=== PATIENT | male | born 1930 | race Caucasian/White ===

== ENCOUNTER → 2016-09-25 | Outpatient (CLI) | payer OTHER, MEDICARE ==
[~2016-09-25] MED LIST: ACETAMINOPHEN325 M1 PO; ADULT LOW DOSE81 MG PO; ALEVE220 M1 PO; AMRIX15 MG PO; APAP650; DOXYCYCLINE 10100 MG PO; ENABLEX 7.5 MG7.5 M1 PO; ENABLEX15 MG PO; FISH OIL 1,0001 EAC9 PO; GLUCOSAMINE HC500 MG; HYDROCHLOROTHIA25 M1 PO; HYDROCODON-ACE1 EAC7 PO; HYTRIN 5 M5 MG/1 CAP PO; IBUPROFEN200 M2 PO; LISINOPRIL20 MG PO; LISINOPRIL5 MG PO; LIVALO1 MG PO; NABUMETONE 500500 M1 PO; PREDNISONE 10 M10 M1 PO; PROSCAR 5MG TABL5 M1 PO; RELAFEN500 MG PO; RX OINTMENT; SIMVASTATIN20 MG PO; TYLENOL P.M. E1 EAC3 PO; VITAMIN B-12500 MCG PO; VITAMIN D 5050000 I1; VITAMIN D1000 UNI1 PO; ZOCOR40 MG PO
== END ==
LOC: MRI 10:24
DX: M54.12 Radiculopathy, cervical region (principal); R26.9 Unspecified abnormalities of gait and mobility; M54.2 Cervicalgia; M47.812 Spondylosis without myelopathy or radiculopathy, cervical region; M25.78 Osteophyte, vertebrae